=== PATIENT | male | born 1945 | race Caucasian/White ===

== ENCOUNTER 2017-01-11 19:58 | Emergency (ER) | payer MEDICARE, BC ==
[2017-01-11] MEDS ORDERED: Sodium Chloride 0.9% 1,000 ML IV SCH (20:45)
--- NOTE | 2017-01-11 20:55 | EDM.PDOC ---
ED HPI GENERAL MEDICAL PROBLEM - General Chief Complaint: General Stated Complaint: CANCER LATHARGIC Time Seen by Provider: 01/11/17 20:49 Source of Information: Reports: Patient, Family History Limitations: Reports: No Limitations - History of Present Illness INITIAL COMMENTS - FREE TEXT/NARRATIVE: pt just had several liters drawn from his abdoman and he was placed on oxycodone and dronabingo to help with the nausea. Onset: Today, Other (pt is very lethargic. ) Duration: Hour(s):, Getting Worse Location: Reports: Head Associated Symptoms: Reports: Weakness, Other (obtunded. ) Left upper Abdomen Pain Score (Numeric/FACES): 6 - Related Data Allergies Allergy/AdvReac Type Severity Reaction Status Date / Time meperidine HCl [From Demerol] Allergy Severe Hives Verified 01/11/17 20:28 Home Meds: Home Meds Amylase/Lipase/Protease [Dante FIGUEROA 12,000 Units] 1 cap PO ASDIRECTED 01/11/17 [ History] Dronabinol 5 mg PO DAILY 01/11/17 [History] Insulin Glarg,Human.Rec.Analog [LantUS Solostar] 20 unit SUBCUT BEDTIME [History] LORazepam [Ativan] 0.5 mg PO TID PRN 01/11/17 [History] Ondansetron [Zofran] 8 mg PO Q8H PRN 01/11/17 [History] oxyCODONE ER [OxyCONTIN] 10 mg PO Q12H 01/11/17 [History] oxyCODONE [Oxycodone HCl] 10 mg PO Q4HR PRN 01/11/17 [History] Past Medical History HEENT History: Reports: Hard of Hearing, Other (See Below) Other HEENT History: Wears hearing aids. Gastrointestinal History: Reports: GERD Genitourinary History: Reports: Prostate Disorder Endocrine/Metabolic History: Reports: Diabetes, Type II Oncologic (Cancer) History: Reports: Liver, Pancreatic, Other (See Below) Other Oncologic History: Peritoneal CA, Liver Spots, Pancreatic CA. - Infectious Disease History Infectious Disease History: Reports: Chicken Pox, MRSA, Other (See Below) Other Infectious Disease History: + MRSA nasal swab. No open wound MRSA - Past Surgical History GI Surgical History: Reports: Hernia Repair/Other Male Surgical History: Reports: Cystectomy Musculoskeletal Surgical History: Reports: Knee Replacement Social & Family History - Tobacco Use Smoking Status *Q: Current Status Unknown - Caffeine Use Caffeine Use: Reports: Coffee - Alcohol Use Days Per Week of Alcohol Use: 0 - Recreational Drug Use Recreational Drug Use: No ED ROS GENERAL - Review of Systems Review Of Systems: See Below Constitutional: Reports: No Symptoms HEENT: Reports: No Symptoms Respiratory: Reports: No Symptoms Cardiovascular: Reports: No Symptoms Endocrine: Reports: No Symptoms GI/Abdominal: Reports: Other (pt is not having alot of pain. ) : Reports: No Symptoms Musculoskeletal: Reports: No Symptoms Skin: Reports: No Symptoms Neurological: Reports: Weakness, Other ( very sleepy. ) Psychiatric: Reports: No Symptoms ED EXAM, GENERAL - Physical Exam Exam: See Below Free Text/Narrative:: pt arrived with a history of doing well for 2-3 days and of becomimng very obtunded . Exam Limited By: Altered Mental Status General Appearance: Obtunded Ears: Normal TMs Nose: Normal Inspection Throat/Mouth: Normal Inspection Head: Atraumatic Neck: Normal Inspection Respiratory/Chest: No Respiratory Distress Cardiovascular: Regular Rate, Rhythm GI/Abdominal: Soft, Non-Tender (Male) Exam: Deferred Rectal (Males) Exam: Deferred Extremities: Normal Inspection Neurological: Alert, Oriented, Normal Cognition, Other ( very sleepy but does answer question appropiately) Psychiatric: Depressed Mood Course - Orders/Labs/Meds Orders: Active Orders 24 hr Category Date Time Status Chest 1V Frontal [CR] Stat Exams 01/11/17 20:43 Taken Sodium Chloride 0.9% [Normal Saline] 1,000 ml Med 01/11/17 20:45 Active IV ASDIRECTED Medication Orders Sodium Chloride (Normal Saline) 1,000 mls @ 999 mls/hr IV ASDIRECTED CHAYO Last Admin: 01/11/17 21:02 Dose: 999 mls/hr Labs: Laboratory Tests 01/11/17 01/11/17 01/11/17 Range/Units 21:06 21:06 21:06 WBC 13.9 H (4.5-11.0) K/uL RBC 4.00 L (4.30-5.90) M/uL Hgb 11.8 L (12.0-15.0) g/dL Hct 35.9 L (40.0-54.0) % MCV 90 (80-98) fL MCH 30 (27-31) pg MCHC 33 (32-36) % Plt Count 202 (150-400) K/uL Neut % (Auto) 85 H (36-66) % Lymph % (Auto) 6 L (24-44) % [place] % (Auto) 6 (2-6) % Eos % (Auto) 2 (2-4) % Baso % (Auto) 1 (0-1) % Sodium 134 L (140-148) mmol/L Potassium 4.3 (3.6-5.2) mmol/L Chloride 99 L (100-108) mmol/L Carbon Dioxide 30 (21-32) mmol/L Anion Gap 9.3 (5.0-14.0) mmol/L BUN 13 (7-18) mg/dL Creatinine 1.1 (0.8-1.3) mg/dL Est Cr Clr Drug Dosing 68.22 mL/min Estimated GFR (MDRD) > 60 (>60) Glucose 168 H (74-106) mg/dL Calcium 8.3 L (8.5-10.1) mg/dL Total Bilirubin 0.2 (0.2-1.0) mg/dL AST 18 (15-37) U/L ALT 13 (12-78) U/L Alkaline Phosphatase 108 (46-116) U/L Total Protein 5.6 L (6.4-8.2) g/dL Albumin 2.5 L (3.4-5.0) g/dL Globulin 3.1 (2.3-3.5) g/dL Albumin/Globulin Ratio 0.8 L (1.2-2.2) Lipase 62 L (73-393) U/L Urine Color Urine Appearance Urine pH (4.5-8.0) Ur Specific [place] (1.008-1.030) Urine Protein (NEGATIVE) mg/dL Urine Glucose (UA) (NEGATIVE) mg/dL Urine Ketones (NEGATIVE) mg/dL Urine Occult Blood (NEGATIVE) Urine Nitrite (NEGAITVE) Urine Bilirubin (NEGATIVE) Urine Urobilinogen (NORMAL) mg/dL Ur Leukocyte Esterase (NEGATIVE) Urine RBC (0-5) Urine WBC (0-5) Ur Epithelial Cells Amorphous Sediment Urine Bacteria Urine Mucus 07/01/17 Range/Units 22:14 WBC (4.5-11.0) K/uL RBC (4.30-5.90) M/uL Hgb (12.0-15.0) g/dL Hct (40.0-54.0) % MCV (80-98) fL MCH (27-31) pg MCHC (32-36) % Plt Count (150-400) K/uL Neut % (Auto) (36-66) % Lymph % (Auto) (24-44) % [place] % (Auto) (2-6) % Eos % (Auto) (2-4) % Baso % (Auto) (0-1) % Sodium (140-148) mmol/L Potassium (3.6-5.2) mmol/L Chloride (100-108) mmol/L Carbon Dioxide (21-32) mmol/L Anion Gap (5.0-14.0) mmol/L BUN (7-18) mg/dL Creatinine (0.8-1.3) mg/dL Est Cr Clr Drug Dosing mL/min Estimated GFR (MDRD) (>60) Glucose (74-106) mg/dL Calcium (8.5-10.1) mg/dL Total Bilirubin (0.2-1.0) mg/dL AST (15-37) U/L ALT (12-78) U/L Alkaline Phosphatase (46-116) U/L Total Protein (6.4-8.2) g/dL Albumin (3.4-5.0) g/dL Globulin (2.3-3.5) g/dL Albumin/Globulin Ratio (1.2-2.2) Lipase (73-393) U/L Urine Color Yellow Urine Appearance Clear Urine pH 5.0 (4.5-8.0) Ur Specific [place] 1.020 (1.008-1.030) Urine Protein Negative (NEGATIVE) mg/dL Urine Glucose (UA) Normal (NEGATIVE) mg/dL Urine Ketones Negative (NEGATIVE) mg/dL Urine Occult Blood Negative (NEGATIVE) Urine Nitrite Negative (NEGAITVE) Urine Bilirubin Small (NEGATIVE) Urine Urobilinogen 1 (NORMAL) mg/dL Ur Leukocyte Esterase Negative (NEGATIVE) Urine RBC 0-5 (0-5) Urine WBC 0-5 (0-5) Ur Epithelial Cells Few Amorphous Sediment Not seen Urine Bacteria Few Urine Mucus Not seen Meds: Medications Generic Name Dose Route Start Last Admin Trade Name Naman PRN Reason Stop Dose Admin Sodium Chloride 1,000 mls @ 999 mls/hr 01/11/17 20:45 01/11/17 21:02 Normal Saline IV 999 mls/hr ASDIRECTED CHAYO Administration - Re-Assessments/Exams Free Text/Narrative Re-Assessment/Exam: 01/11/17 23:10 pt had normal electrolytes. , his urine did not look infected. his chest looked ok. At this point it looked like more over sedation. 01/11/17 23:13 Departure - Departure Time of Disposition: 23:13 Disposition: Home, Self-Care 01 Condition: Fair Clinical Impression: Sedated due to medication - Discharge Information Forms: ED Department Discharge Care Plan Goals: push fluids, hold oxycontin tonight, start tomorrow with a 1/2 tab in the am and a 1/2 tab in the pm. If he still seemes sedated check with the oncologist. cont other meds. - My Orders Last 24 Hours: My Active Orders 01/11/17 20:43 Chest 1V Frontal [CR] Stat 01/11/17 20:45 Sodium Chloride 0.9% [Normal Saline] 1,000 ml IV ASDIRECTED - Assessment/Plan Last 24 Hours: My Active Orders 01/11/17 20:43 Chest 1V Frontal [CR] Stat 01/11/17 20:45 Sodium Chloride 0.9% [Normal Saline] 1,000 ml IV ASDIRECTED
[2017-01-11 23:59] VITALS: BP 109/65
--- NOTE | 2017-01-13 09:20 | CR ---
Heart size within normal limits. Left lung is clear. Right lung is clear. Right IJ catheter at cavoa trial junction. No focal consolidation.
== END 2017-01-12 00:02 | disposition home or self-care (01) ==
LOC: JP.ED 19:58
DX: T50.901A Poisoning by unspecified drugs, medicaments and biological substances, accidental (unintentional), initial encounter (principal); R40.4 Transient alteration of awareness; K21.9 Gastro-esophageal reflux disease without esophagitis; E11.9 Type 2 diabetes mellitus without complications; Z85.05 Personal history of malignant neoplasm of liver; Z85.07 Personal history of malignant neoplasm of pancreas; Z96.659 Presence of unspecified artificial knee joint; Z98.890 Other specified postprocedural states; Z88.8 Allergy status to other drugs, medicaments and biological substances; Z79.4 Long term (current) use of insulin; Z79.899 Other long term (current) drug therapy
CPT/HCPCS: 36415; 71010; 80053; 81001; 82962; 83690; 85025; 96360; 96361; 99284; J1642; J7040

== ENCOUNTER 2017-02-13 13:02 | Observation (INO) | payer MEDICARE, BC ==
--- NOTE | 2017-02-13 18:00 | EDM.PDOC ---
ED HPI GENERAL MEDICAL PROBLEM - General Chief Complaint: Abdominal Pain Stated Complaint: FLUID IN ABD Time Seen by Provider: 02/13/17 17:55 Source of Information: Reports: Patient, Police History Limitations: Reports: No Limitations - History of Present Illness INITIAL COMMENTS - FREE TEXT/NARRATIVE: Pt has had increased sob and alot of pressure in his abdoman. Pt has had a parencentses in the past. He feels he would be more comfortable if he were tapped. Onset: Gradual Duration: Day(s):, Getting Worse Location: Reports: Abdomen Associated Symptoms: Reports: Loss of Appetite, Malaise, Weakness Abdominal Pain Score (Numeric/FACES): 2 - Related Data Allergies Allergy/AdvReac Type Severity Reaction Status Date / Time meperidine HCl [From Demerol] Allergy Severe Hives Verified 02/13/17 15:28 Home Meds: Home Meds Insulin Glarg,Human.Rec.Analog [LantUS Solostar] 16 unit SUBCUT BEDTIME [History] LORazepam [Ativan] 0.5 mg PO BID PRN 01/11/17 [History] Ondansetron [Zofran] 8 mg PO Q8H PRN 01/11/17 [History] oxyCODONE ER [OxyCONTIN] 10 mg PO Q12H 01/11/17 [History] oxyCODONE [Oxycodone HCl] 10 mg PO Q4HR PRN 01/11/17 [History] *Thc 02/13/17 [History] Amylase/Lipase/Protease [Dante DR 24,000 Unit] 1 cap PO ASDIRECTED 02/13/17 [ History] Colchicine 0.5 tab PO DAILY 02/13/17 [History] Famotidine [Pepcid] 1 tab PO DAILY 02/13/17 [History] Metoclopramide HCl [Reglan] 1 tab PO Q8H PRN 02/13/17 [History] Past Medical History HEENT History: Reports: Hard of Hearing, Other (See Below) Other HEENT History: Wears hearing aids. Gastrointestinal History: Reports: GERD Genitourinary History: Reports: Prostate Disorder Endocrine/Metabolic History: Reports: Diabetes, Type II Oncologic (Cancer) History: Reports: Liver, Metastatic, Pancreatic, Prostate, Other (See Below) Other Oncologic History: Peritoneal CA, Liver Spots, Pancreatic CA. - Infectious Disease History Infectious Disease History: Reports: Chicken Pox, MRSA, Other (See Below) Other Infectious Disease History: + MRSA nasal swab. No open wound MRSA - Past Surgical History GI Surgical History: Reports: Hernia Repair/Other Male Surgical History: Reports: Cystectomy Musculoskeletal Surgical History: Reports: Knee Replacement Social & Family History - Tobacco Use Smoking Status *Q: Never Smoker - Caffeine Use Caffeine Use: Reports: Coffee - Alcohol Use Days Per Week of Alcohol Use: 0 - Recreational Drug Use Recreational Drug Use: No ED ROS GENERAL - Review of Systems Review Of Systems: See Below Constitutional: Reports: Weakness, Decreased Appetite HEENT: Reports: No Symptoms Respiratory: Reports: Shortness of Breath Cardiovascular: Reports: No Symptoms Endocrine: Reports: No Symptoms GI/Abdominal: Reports: Distension, Other (Pt Has had increased pressure in his abdoman.) : Reports: No Symptoms Musculoskeletal: Reports: No Symptoms Skin: Reports: No Symptoms Neurological: Reports: No Symptoms ED EXAM, GI/ABD - Physical Exam Exam: See Below Text/Narrative:: pt is a pale appearing pt with a distended abdoman. Exam Limited By: No Limitations General Appearance: Alert, Anxious, Moderate Distress Ears: Normal TMs Nose: Normal Inspection Throat/Mouth: Normal Inspection Head: Atraumatic Neck: Normal Inspection Respiratory/Chest: No Respiratory Distress Cardiovascular: Regular Rate, Rhythm GI/Abdominal Exam: Distended, Other (mild tenderness no guarding. ) Rectal (Males) Exam: Deferred Back Exam: Normal Inspection Extremities: Pedal Edema Neurological: Alert, Oriented, Normal Cognition Course - Vital Signs Last Recorded V/S: Last Vital Signs Temp 36.6 C 02/13/17 15:27 Pulse 62 02/13/17 15:27 Resp 16 02/13/17 15:27 BP 131/75 02/13/17 15:27 Pulse Ox 95 02/13/17 15:27 - Orders/Labs/Meds Orders: Active Orders 24 hr Category Date Time Status Chest 1V Frontal [CR] Stat Exams 02/13/17 16:48 Taken US Guidance Paracentesis NC [US] Stat Exams 02/13/17 16:46 Taken UA W/MICROSCOPIC [URIN] Urgent Lab 02/13/17 16:46 Uncollected Labs: Laboratory Tests 02/13/17 02/13/17 Range/Units 16:46 16:46 WBC 9.8 (4.5-11.0) K/uL RBC 3.47 L (4.30-5.90) M/uL Hgb 9.8 L D (12.0-15.0) g/dL Hct 31.0 L (40.0-54.0) % MCV 89 (80-98) fL MCH 28 (27-31) pg MCHC 32 (32-36) % Plt Count 176 (150-400) K/uL Neut % (Auto) 77 H (36-66) % Lymph % (Auto) 10 L (24-44) % [place] % (Auto) 11 H (2-6) % Eos % (Auto) 2 (2-4) % Baso % (Auto) 0 (0-1) % Sodium 139 L (140-148) mmol/L Potassium 3.6 (3.6-5.2) mmol/L Chloride 105 (100-108) mmol/L Carbon Dioxide 31 (21-32) mmol/L Anion Gap 6.6 (5.0-14.0) mmol/L BUN 19 H (7-18) mg/dL Creatinine 0.9 (0.8-1.3) mg/dL Est Cr Clr Drug Dosing 83.27 mL/min Estimated GFR (MDRD) > 60 (>60) Glucose 177 H (74-106) mg/dL Calcium 7.9 L (8.5-10.1) mg/dL Total Bilirubin 0.2 (0.2-1.0) mg/dL AST 14 L (15-37) U/L ALT 11 L (12-78) U/L Alkaline Phosphatase 119 H (46-116) U/L Total Protein 5.5 L (6.4-8.2) g/dL Albumin 2.1 L (3.4-5.0) g/dL Globulin 3.4 (2.3-3.5) g/dL Albumin/Globulin Ratio 0.6 L (1.2-2.2) - Re-Assessments/Exams Free Text/Narrative Re-Assessment/Exam: 02/13/17 18:02 pt had an US which showed fluid in 4 quadrants. He was marked for a parecenteses. Departure - Departure Time of Disposition: 18:03 Disposition: Admitted As Inpatient 68 Condition: Fair Clinical Impression: CA head of pancreas, Ascites, Anemia - Discharge Information Forms: ED Department Discharge Care Plan Goals: admit to Dr Belcher. - My Orders Last 24 Hours: My Active Orders 02/13/17 16:46 US Guidance Paracentesis NC [US] Stat UA W/MICROSCOPIC [URIN] Urgent 02/13/17 16:48 Chest 1V Frontal [CR] Stat - Assessment/Plan Last 24 Hours: My Active Orders 02/13/17 16:46 US Guidance Paracentesis NC [US] Stat UA W/MICROSCOPIC [URIN] Urgent 02/13/17 16:48 Chest 1V Frontal [CR] Stat
--- NOTE | 2017-02-13 18:44 | PCM.HP ---
H&P History of Present Illness - General Date of Service: 02/13/17 Admit Problem/Dx: Admission Diagnosis/Problem Admission Diagnosis/Problem Abdominal pain Source of Information: Patient, Provider History Limitations: Reports: No Limitations - History of Present Illness Initial Comments - Free Text/Narative: Estevan presents to the emergency room today with slowly progressive abdominal distention and abdominal pain. He describes diffuse achy abdominal pain that radiates throughout the entire abdomen. Worse with movement and has become progressively worse as the distention has increased. His usual home pain medications normally keep the pain fairly well controlled but it has been progressing. He has noticed that he is more short of breath with activities such as climbing the stairs and has had some nausea. He came today to have some fluid removed from his abdomen because he feels similar to how he did before his last paracentesis. He has not had any fevers. He has not had any vomiting. No change in bowel or bladder habits. Workup in the emergency room was fairly reassuring other than a significant abdominal ascites. He will be admitted for observation and paracentesis in the morning Abdominal Pain Score (Numeric/FACES): 2 - Related Data Allergies/Adverse Reactions: Allergies Allergy/AdvReac Type Severity Reaction Status Date / Time meperidine HCl [From Demerol] Allergy Severe Hives Verified 02/13/17 15:28 Home Medications: Home Meds Insulin Glarg,Human.Rec.Analog [LantUS Solostar] 16 unit SUBCUT BEDTIME [History] LORazepam [Ativan] 0.5 mg PO BID PRN 01/11/17 [History] Ondansetron [Zofran] 8 mg PO Q8H PRN 01/11/17 [History] oxyCODONE ER [OxyCONTIN] 10 mg PO Q12H 01/11/17 [History] oxyCODONE [Oxycodone HCl] 10 mg PO Q4HR PRN 01/11/17 [History] *Thc 02/13/17 [History] Amylase/Lipase/Protease [Dante FIGUEROA 24,000 Unit] 1 cap PO ASDIRECTED 02/13/17 [ History] Colchicine 0.5 tab PO DAILY 02/13/17 [History] Famotidine [Pepcid] 1 tab PO DAILY 02/13/17 [History] Metoclopramide HCl [Reglan] 1 tab PO Q8H PRN 02/13/17 [History] Past Medical History HEENT History: Reports: Hard of Hearing, Other (See Below) Other HEENT History: Wears hearing aids. Gastrointestinal History: Reports: GERD Genitourinary History: Reports: Prostate Disorder Endocrine/Metabolic History: Reports: Diabetes, Type II Oncologic (Cancer) History: Reports: Liver, Metastatic, Pancreatic, Prostate, Other (See Below) Other Oncologic History: Peritoneal CA, Liver Spots, Pancreatic CA. - Infectious Disease History Infectious Disease History: Reports: Chicken Pox, MRSA, Other (See Below) Other Infectious Disease History: + MRSA nasal swab. No open wound MRSA - Past Surgical History GI Surgical History: Reports: Hernia Repair/Other Male Surgical History: Reports: Cystectomy Musculoskeletal Surgical History: Reports: Knee Replacement Social & Family History - Family History Oncologic: Denies: Pancreatic - Tobacco Use Smoking Status *Q: Never Smoker - Caffeine Use Caffeine Use: Reports: Coffee - Alcohol Use Days Per Week of Alcohol Use: 0 - Recreational Drug Use Recreational Drug Use: No H&P Review of Systems - Review of Systems: Review Of Systems: See Below Free Text/Narrative: A complete 12 point review of systems was obtained. Pertinent positives and negatives are noted in the history of present illness. All other systems were reviewed and were negative except as noted. Exam - Exam Exam: See Below - Vital Signs Vital Signs: Last Vital Signs Temp 36.6 C 02/13/17 15:27 Pulse 62 02/13/17 15:27 Resp 16 02/13/17 15:27 BP 131/75 02/13/17 15:27 Pulse Ox 95 02/13/17 15:27 Weight: 76 kg - Exam Quality Assessment: No: Supplemental Oxygen General: Alert, Oriented, Cooperative. No: Mild Distress HEENT: Conjunctiva Clear, Mucosa Moist & [place]. No: Scleral Icterus Neck: Supple, Trachea Midline. No: Lymphadenopathy Lungs: Clear to Auscultation, Normal Respiratory Effort Cardiovascular: Regular Rate, Regular Rhythm, Systolic Murmur GI/Abdominal Exam: Normal Bowel Sounds, Soft, Distended, Tender Back Exam: Normal Inspection, Full Range of Motion Extremities: Normal Inspection, No Pedal Edema. No: Increased Warmth Peripheral Pulses: 1+: Dorsalis Pedis (L), Dorsalis Pedis (R) Skin: Warm, Dry, Intact Neuro Extensive - Mental Status: Alert, Oriented x3, Nl Response to Commands Neuro Extensive - Motor, Sensory, Reflexes: CN II-XII Intact, Abnormal Motor, Tremor. No: Dysarthria Psychiatric: Alert, Normal Affect - Patient Data Lab Results Last 24 hrs: Laboratory Results - last 24 hr 02/13/17 02/13/17 02/13/17 Range/Units 16:46 16:46 18:03 WBC 9.8 (4.5-11.0) K/uL RBC 3.47 L (4.30-5.90) M/uL Hgb 9.8 L D (12.0-15.0) g/dL Hct 31.0 L (40.0-54.0) % MCV 89 (80-98) fL MCH 28 (27-31) pg MCHC 32 (32-36) % Plt Count 176 (150-400) K/uL Neut % (Auto) 77 H (36-66) % Lymph % (Auto) 10 L (24-44) % [place] % (Auto) 11 H (2-6) % Eos % (Auto) 2 (2-4) % Baso % (Auto) 0 (0-1) % Sodium 139 L (140-148) mmol/L Potassium 3.6 (3.6-5.2) mmol/L Chloride 105 (100-108) mmol/L Carbon Dioxide 31 (21-32) mmol/L Anion Gap 6.6 (5.0-14.0) mmol/L BUN 19 H (7-18) mg/dL Creatinine 0.9 (0.8-1.3) mg/dL Est Cr Clr Drug Dosing 83.27 mL/min Estimated GFR (MDRD) > 60 (>60) Glucose 177 H (74-106) mg/dL Calcium 7.9 L (8.5-10.1) mg/dL Total Bilirubin 0.2 (0.2-1.0) mg/dL AST 14 L (15-37) U/L ALT 11 L (12-78) U/L Alkaline Phosphatase 119 H (46-116) U/L Total Protein 5.5 L (6.4-8.2) g/dL Albumin 2.1 L (3.4-5.0) g/dL Globulin 3.4 (2.3-3.5) g/dL Albumin/Globulin Ratio 0.6 L (1.2-2.2) Lipase 56 L (73-393) U/L Result Diagrams: 02/13/17 16:46 02/13/17 16:46 Imaging Impressions Last 24 hrs: CXR - images personally reviewed - heart size normal, no mass, infiltrate, effusion *Q Meaningful Use (ADM) - VTE *Q VTE Criteria *Q: VTE Pharmacological Contraindications *Q: Patient Scheduled Surgery - Stroke *Q Stroke Criteria *Q: - AMI *Q AMI Criteria *Q: - Problem List (1) Malignant ascites SNOMED Code(s): 077564496 ICD Code: R18.0 - MALIGNANT ASCITES Status: Acute Current Visit: Yes (2) CA head of pancreas Status: Chronic Current Visit: Yes Problem List Initiated/Reviewed/Updated: Yes Orders Last 24hrs: Active Orders 24 hr Category Date Time Status Patient Status Manage Transfer [TRANSFER] Routine ADT 02/13/17 18:34 Ordered Chest 1V Frontal [CR] Stat Exams 02/13/17 16:48 Taken US Guidance Paracentesis NC [US] Stat Exams 02/13/17 16:46 Taken UA W/MICROSCOPIC [URIN] Urgent Lab 02/13/17 16:46 Uncollected Resuscitation Status Routine Resus Stat 02/13/17 18:36 Ordered Assessment/Plan Comment:: Assessment and plan - Malignant ascites secondary to pancreatic cancer - progressive increase in abdominal distention and abdominal pain as well as dyspnea. He would benefit from therapeutic paracentesis at this point. Dr. Kennedy has been contacted and is planning a paracentesis first thing in the morning. He is not on any blood thinners and there is no obvious reason to avoid the procedure at this point. -Pain control overnight -Paracentesis in the morning -Consider albumin if greater than 5 L are removed Insulin-dependent diabetes mellitus - Sugars have been well-controlled on usual medications will be continued. Maintenance issues - - DVT prophylaxis - mechanical with upcoming procedure - GI prophylaxis - H2 judie - Nutrition - regular diet - Woods catheter - not indicated CODE STATUS - full code Admission justification - patient will be referred observation status for pain control overnight and paracentesis in the morning Disposition - anticipate discharge to home tomorrow Primary care physician - [facility] Primary oncologist - [facility] Ramone Belcher M.D.
[2017-02-13] MEDS ORDERED: Morphine 2 MG/ML Syringe IVPUSH PRN (19:33)
[2017-02-13] MEDS ORDERED: Ibuprofen 600 MG Tab PO PRN (19:33)
[2017-02-13] MEDS ORDERED: Ondansetron 4 MG Tab.DIS PO PRN (19:33)
[2017-02-13] MEDS ORDERED: Sodium Chloride 0.9% 10 ML Syringe FLUSH PRN (19:33)
[2017-02-13] MEDS ORDERED: Acetaminophen 325 MG Tab PO PRN (19:33)
[2017-02-13] MEDS ORDERED: LORazepam 0.5 MG Tab PO PRN (19:33)
[2017-02-13] MEDS ORDERED: oxyCODONE 5 MG Tab PO PRN (19:45)
[2017-02-13] MEDS ORDERED: Insulin Detemir 100 Units/ML 3 ML Pen SUBCUT SCH (21:00)
[2017-02-13] MEDS: oxyCODONE ER 10 MG TAB.ER PO SCH (22:21)
[2017-02-13] MEDS ORDERED: [UNRECOGNIZED DRUG - OTHER] PO ONE (22:30)
[2017-02-14] MEDS ORDERED: Lactated Ringers 500 ML IV ONE (06:30)
[2017-02-14] MEDS: oxyCODONE ER 10 MG TAB.ER PO SCH (08:13)
[2017-02-14] MEDS ORDERED: Famotidine 20 MG Tab PO SCH (09:00)
[2017-02-14] MEDS ORDERED: FAMOTIDINE PO SCH (09:00)
--- NOTE | 2017-02-14 09:37 | CR ---
Right IJ catheter with distal tip at the caval atrial junction. Low lung volumes. Streaky density le ft lung base likely atelectasis.
[2017-02-14 11:16] VITALS: BP 100/63
--- NOTE | 2017-02-14 13:29 | PCM.DCSUM1 ---
Discharge Summary - Hospital Course Brief History: 71-year-old male with history of pancreatic cancer complicated by malignant ascites who presented with increasing abdominal distention and shortness of breath. He was admitted for paracentesis. - Discharge Data Discharge Date: 02/14/17 Discharge Disposition: Home, Self-Care 01 Condition: Good - Discharge Diagnosis/Problem(s) (1) Malignant ascites SNOMED Code(s): 705335869 ICD Code: R18.0 - MALIGNANT ASCITES Status: Acute (2) CA head of pancreas Status: Chronic - Patient Summary/Data Consults: Consultations 02/13/17 19:33 Consult to Physician [CONS] Routine Consulting Provider: Asher Kennedy Courtesy Call Completed to Consulting Physician: Yes Reason for Consult: malignant ascites, consider paracentesis Person Notified: RAND Date Notified: 02/13/17 Special Instructions: planning paracentesis in the morning at 0600 Hospital Course: Estevan presented to the emergency room with increasing abdominal distention and dyspnea with exertion. Workup in the emergency room suggested ascites and paracentesis was planned. Surgical intervention was not available until the next morning unfortunately. He was admitted to the hospital. There were no acute events overnight following admission. The morning after admission he had a therapeutic paracentesis performed. 3 L of fluid were removed with improvement in his symptoms. He did receive a dose of albumin after the paracentesis. He feels well and is interested in going home after the paracentesis. I did set him up for repeat evaluation in approximately 4 weeks since fluid seems to accumulate in 5 weeks. He will be seeing Dr. Kennedy at the end of February. - Patient Instructions Diet: Regular Diet as Tolerated Activity: As Tolerated Showering/Bathing: May Shower Notify Provider of: Fever, Increased Pain, Nausea and/or Vomiting Other/Special Instructions: 1. You were in the hospital for management of shortness of breath and abdominal distention secondary to ascites. Dr. Kennedy was able to remove 3 L of fluid with the help of a paracentesis. I would recommend that we schedule a follow-up in 4 weeks to help remove fluid prior to symptoms becoming bothersome. This will be scheduled on March 13 and you should arrive early to have an ultrasound marking of the fluid prior to the procedure. 2. Please continue your usual home medications as previously prescribed. 3. Please seek medical attention if you develop fever greater than 101, have sudden worsening of your abdominal pain or distention or you develop severe shortness of breath. - Discharge Plan Home Medications: Home Meds Insulin Glarg,Human.Rec.Analog [Lantus Solostar] 16 unit SUBCUT BEDTIME [History] LORazepam [Ativan] 0.5 mg PO BID PRN 01/11/17 [History] Ondansetron [Zofran] 8 mg PO Q8H PRN 01/11/17 [History] oxyCODONE 10 mg PO Q4HR PRN 01/11/17 [History] oxyCODONE ER [OxyCONTIN] 10 mg PO Q12H 01/11/17 [History] *Thc 02/13/17 [History] Amylase/Lipase/Protease [Dante FIGUEROA 24,000 Unit] 1 cap PO ASDIRECTED 02/13/17 [ History] Colchicine 0.5 tab PO DAILY 02/13/17 [History] Famotidine [Pepcid] 1 tab PO DAILY 02/13/17 [History] Metoclopramide HCl [Reglan] 1 tab PO Q8H PRN 02/13/17 [History] Patient Handouts: Paracentesis, Care After Referrals: Asher Kennedy MD [Physician] - 03/13/17 (f/u for outpatient/ACU paracentesis on 03/13 - will need US marking prior to procedure) - Discharge Summary/Plan Comment DC Time >30 min.: No (25) - Patient Data Vitals - Most Recent: Last Vital Signs Temp 36.2 C 02/14/17 11:14 Pulse 61 02/14/17 11:14 Resp 16 02/14/17 11:14 BP 100/63 02/14/17 11:14 Pulse Ox 97 02/14/17 11:14 Weight - Most Recent: 73.936 kg I&O - Last 24 hours: Intake & Output 02/13/17 02/14/17 02/14/17 22:59 06:59 14:59 Intake Total 150 150 Output Total 3000 Balance 150 -3000 150 Med Orders - Current: Current Medications Acetaminophen (Tylenol) 650 mg PO Q4H PRN PRN Reason: Pain (Mild 1-3)/fever Famotidine (Pepcid) 40 mg PO DAILY [facility] Last Admin: 02/14/17 09:00 Dose: Not Given Heparin Sodium (Porcine) (Heparin Lock Flush 100 Units/Ml) 500 units FLUSH ASDIRECTED PRN PRN Reason: Other Last Admin: 02/14/17 11:17 Dose: 500 units Ibuprofen (Motrin) 600 mg PO Q6H PRN PRN Reason: Pain/Fever Insulin Detemir (Levemir) 16 unit SUBCUT BEDTIME [facility] Lorazepam (Ativan) 0.5 mg PO BID PRN PRN Reason: Nausea Morphine Sulfate (Morphine) 4 - 8 mg IVPUSH Q2H PRN PRN Reason: Pain (severe 7-10) Ondansetron HCl (Zofran Odt) 4 mg PO Q6H PRN PRN Reason: Nausea able to take PO Last Admin: 02/13/17 20:17 Dose: 4 mg Oxycodone HCl (Oxycodone) 10 mg PO Q4H PRN PRN Reason: PAIN (SEVERE 7-10) Oxycodone HCl (Oxycontin) 10 mg PO Q12H [facility] Last Admin: 02/14/17 08:13 Dose: 5 mg [place] Oral Suspension Own Med 0 each PO BEDTIME [facility] Sodium Chloride (Saline Flush) 10 ml FLUSH ASDIRECTED PRN PRN Reason: Keep Vein Open Discontinued Medications Albumin Human (Albumin 25%) 25 gm IV ONETIME ONE Stop: 02/14/17 06:16 Last Admin: 02/14/17 06:23 Dose: 25 gm Lactated Ringer's (Ringers, Lactated) 500 mls @ 500 mls/hr IV ONETIME ONE Stop: 02/14/17 07:29 Last Admin: 02/14/17 09:45 Dose: 500 mls/hr Insulin Detemir (Levemir) 16 unit SUBCUT BEDTIME [facility] Last Admin: 02/13/17 22:22 Dose: Not Given [place] Oral Suspension Own Med 5 each PO BEDTIME [facility] Last Admin: 02/13/17 22:22 Dose: 5 each [place] Oral Suspension Own Med 5 each PO ONETIME ONE Stop: 02/13/17 22:31 Last Admin: 02/13/17 23:58 Dose: Not Given *Q Meaningful Use (DIS) - VTE *Q VTE Criteria *Q: VTE Pharmacological Contraindications *Q: Patient Scheduled Surgery - Stroke *Q Stroke Criteria *Q: - AMI *Q AMI Criteria *Q:
[2017-02-14] MEDS ORDERED: Insulin Detemir 100 Units/ML 3 ML Pen SUBCUT SCH (21:00)
[2017-02-14] MEDS ORDERED: [UNRECOGNIZED DRUG - OTHER] PO SCH ×2 (21:00)
--- NOTE | 2017-02-17 12:11 | OR ---
DATE OF PROCEDURE: 02/14/2017 PREOPERATIVE DIAGNOSIS: Tense ascites secondary to advanced pancreatic carcinoma. POSTOPERATIVE DIAGNOSIS: Tense ascites secondary to advanced pancreatic carcinoma. PROCEDURE: Ultrasound-guided paracentesis (04142). ANESTHESIA: Local. INDICATION FOR PROCEDURE: The patient was admitted overnight with some increased ascites associated with his pancreatic carcinoma. The patient was noted to have a peritoneal metastases. The plan is to proceed with a paracentesis. Ultrasound was used to identify the appropriate location for entrance of the abdomen. Potential risks of the procedure including bleeding, infection, and injury to underlying viscera were gone over and the patient wishes to proceed. DETAILS OF PROCEDURE: The patient was placed in a sitting position in the hospital bed and adequate location for the paracentesis was then identified in the right mid abdomen. That area was then prepped and draped, anesthetized with 1% lidocaine, and the paracentesis catheter was then placed without difficulty. 2 L of clear serous fluid was removed. The patient's blood pressure was only running in the 90 systolic range, so we felt that more fluid would probably be contraindicated in terms of removing more fluid likely could exacerbate his hypotension. Upon completion of the paracentesis, the abdomen was quite soft and a pursestring stitch of 2-0 Prolene stitch was placed around the puncture site and tied to prevent postoperative ascitic leak and a dressing was then applied. We will give the patient some LR as well as 25 g of albumin prior to being discharged home later today. Followup paracentesis can be done as needed. Asher Kennedy MD /[id number]
== END 2017-02-14 14:00 | disposition home or self-care (01) ==
LOC: JP.ED 13:02 → JP.MS 18:34
PROVIDERS: ADMIT Internal Medicine; ATTEND Internal Medicine
DX: R18.0 Malignant ascites (principal); C25.0 Malignant neoplasm of head of pancreas; K21.9 Gastro-esophageal reflux disease without esophagitis; E11.9 Type 2 diabetes mellitus without complications; Z79.4 Long term (current) use of insulin; Z79.899 Other long term (current) drug therapy; Z88.8 Allergy status to other drugs, medicaments and biological substances; Z98.890 Other specified postprocedural states; Z96.659 Presence of unspecified artificial knee joint; Z90.6 Acquired absence of other parts of urinary tract
CPT/HCPCS: 36415; 49083; 71010; 80053; 82962; 83690; 85025; 96361; 96374; 99217; 99219; 99285; A9270; G0378; J1642; P9047